=== PATIENT | male | born 2000 | race Caucasian/White ===

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

== ENCOUNTER 2018-04-05 07:58 | Emergency (ER) | payer SELFPAY ==
[~2018-04-05] VITALS: Ht 170.2 cm; Wt 81.3 kg
[2018-04-05 08:02] VITALS: BP 117/72
--- NOTE | 2018-04-05 08:07 | NUR ---
Patient ambulated to bed 2. RN evaluating patient at bedside.
--- NOTE | 2018-04-05 08:08 | NUR ---
DR JONES EVALUATING AAO PT
--- NOTE | 2018-04-05 08:10 | NUR ---
PATIENT PRESENTS TO ED WITH C/O ABDOMINAL PAIN, N/V X 4 SINCE LAST NIGHT HX; DENIES RX; DENIES DENIES DIARRHEA; SKIN IS PINK/WARM/DRY; AAOX4 WITH EVEN AND STEADY GAIT; LUNGS CLEAR BL; HR EVEN AND REGULAR; PT DENIES ANY FEVER, CP, SOB, OR COUGH AT THIS TIME; PATIENT STATES PAIN OF 7/10 AT THIS TIME; VSS; PATIENT POSITIONED FOR COMFORT; HOB ELEVATED; BEDRAILS UP X2; BED DOWN. ER MD MADE AWARE OF PT STATUS.
[2018-04-05] MEDS ORDERED: METOCLOPRAMIDE 10 MG TAB PO ONE (08:15)
[2018-04-05] MEDS ORDERED: ONDANSETRON 4 MG ODT PO ONE (08:15)
[2018-04-05] MEDS ORDERED: diphenhydrAMINE 12.5 MG/5 ML UDC PO ONE (08:15)
[2018-04-05] MEDS ORDERED: FAMOTIDINE 20 MG TAB PO ONE (08:15)
--- NOTE | 2018-04-05 08:41 | NUR ---
RECIEVED REPORT FROM MARISELA MARSHALL. PATIENT RESTING COMFORTABLY. PROVIDED URINE SAMPLE.
--- NOTE | 2018-04-05 09:22 | NUR ---
Patient discharged with v/s stable. Written and verbal after care instructions given and explained. Patient alert, oriented and verbalized understanding of instructions. Ambulatory with steady gait. All questions addressed prior to discharge. ID band removed. Patient advised to follow up with PMD. Rx of REGLAN given. Patient educated on indication of medication including possible reaction and side effects. Opportunity to ask questions provided and answered.
[2018-04-05 09:23] VITALS: BP 112/69
== END 2018-04-05 09:22 | disposition home or self-care (01) ==
LOC: MED 07:58
DX: K29.70 Gastritis, unspecified, without bleeding (principal); R63.8 Other symptoms and signs concerning food and fluid intake
CPT/HCPCS: 99284; J8597; Q0163; S0119